=== PATIENT | female | born 1975 | race Caucasian/White ===

== ENCOUNTER 2023-05-13 14:18 | Emergency (ER) | payer OTHER ==
[~2023-05-13] VITALS: Ht 182.9 cm; Wt 124.7 kg
[~2023-05-13 14:18] MED LIST: CEPH500 PO; ERYT500 PO; GUAI600ER PO; HYDACE5 PO; LEVSOD50 PO; METR500 PO; SULTRIDS PO; TRAACE PO; TRAM50 PO
[2023-05-13 14:42] VITALS: BP 137/84
[2023-05-13] MEDS ORDERED: Bactrim Ds Tab1 EACH PO ×2 (14:43→15:45)
[2023-05-13] MEDS ORDERED: Ambien10 MG PO ×2 (14:45→15:45)
== END 2023-05-13 15:52 | disposition home or self-care (01) ==
LOC: ER 14:18
DX: L03.011 Cellulitis of right finger (principal); Z88.0 Allergy status to penicillin; Z88.1 Allergy status to other antibiotic agents; Z88.8 Allergy status to other drugs, medicaments and biological substances; Z79.890 Hormone replacement therapy; Z79.899 Other long term (current) drug therapy
CPT/HCPCS: 10060; 99283-25

== ENCOUNTER → 2023-11-25 | Outpatient (CLI) | payer MEDICARE, OTHER ==
[~2023-11-25] MED LIST changes: +Ambien10 MG PO; +Bactrim Ds Tab1 EACH PO
== END | disposition home or self-care (01) ==
LOC: LAB 18:19 → LAB SHORT 18:19
DX: N39.0 Urinary tract infection, site not specified (principal)
CPT/HCPCS: 87077; 87086; 87186

== ENCOUNTER 2024-01-12 14:08 | Inpatient (IN) | payer MEDICARE, OTHER ==
[~2024-01-12] VITALS: Ht 180.3 cm; Wt 126.7 kg
[2024-01-12 14:46] LABS: BASOPHILS ABSOLUTE AUTO 0.08 K/mm3 (0.00-0.23); BASOPHILS PERCENT AUTO 1 % (0-2); EOSINOPHILS ABSOLUTE AUTO 0.54 K/mm3 (0.00-0.68); EOSINOPHILS PERCENT AUTO 4 % (0-6); Hematocrit 35.6 % (33.0-51.0); Hemoglobin 11.6 g/dL (11.5-16.0); IMMATURE GRAN ABSOLUTE AUTO 0.08 K/mm3 (0.00-0.10); IMMATURE GRAN PERCENT AUTO 1 % (0-1); LYMPHOCYTES ABSOLUTE AUTO 2.77 K/mm3 (0.84-5.20); LYMPHOCYTES PERCENT AUTO 22 % (21-46); MONOCYTES ABSOLUTE AUTO 0.94 K/mm3 (0.16-1.47); MONOCYTES PERCENT AUTO 8 % (4-13); Mean Corpuscular HGB 28.2 pg (26.0-34.0); Mean Corpuscular HGB Conc 32.6 g/dL (31.5-36.5); Mean Corpuscular Volume 86 fL (80-100); Mean Platelet Volume 11.3 fL (9.1-12.4); NEUTROPHILS ABSOLUTE AUTO 8.11 K/mm3 (1.96-9.15); NEUTROPHILS PERCENT AUTO 65 % (41-73); Platelet Count 323 K/mm3 (150-400); RDW Coefficient Variation 14.5 % (11.7-14.2); RDW Standard Deviation 46.1 fL (35.1-46.3); Red Blood Cell Count 4.12 M/mm3 (3.80-5.20); White Blood Cell Count 12.52 K/mm3 (4.00-11.30)
[2024-01-12 15:10] LABS: Albumin, Blood 3.4 g/dL (3.4-5.0); Bilirubin, Total 0.5 mg/dL (0.1-1.0); Calcium, Blood 7.9 mg/dL (8.5-10.1); Creatinine, Blood 0.67 mg/dL (0.40-1.00); Globulin, Blood 3.5 g/dL (2.2-4.0); Potassium, Blood 3.9 mmol/L (3.5-5.5); Total Protein, Blood 6.9 g/dL (6.4-8.2)
[2024-01-12] MEDS ORDERED: Azithromycin 250 MG Tab PO ONE (15:30)
[2024-01-12] MEDS ORDERED: CefTRIAXone Sodium 1,000 MG in NS 100 ML IV ONE ×2 (15:30→17:15)
[2024-01-12] MEDS ORDERED: Ketorolac Tromethamine 15mg Vial IV ONE (15:35)
[2024-01-12] MEDS ORDERED: Acetamin/Butalbital/Caffeine Tab PO ONE (16:00)
[2024-01-12] MEDS ORDERED: BASAGLAR K100 UNIT/3 SC (16:04)
[2024-01-12] MEDS ORDERED: NOVOLOG MI100 UNIT/2 SC (16:04)
[2024-01-12] MEDS ORDERED: PARO30 PO (16:04)
[2024-01-12] MEDS ORDERED: ALBU90OI INH (16:04)
[2024-01-12] MEDS ORDERED: BUTALB-ACETAMI1 EAC5 PO (16:05)
[2024-01-12] MEDS ORDERED: ROPINIROLE HCL2 M1 PO (16:06)
[2024-01-12] MEDS ORDERED: REXULTI2 MG PO (16:06)
[2024-01-12] MEDS ORDERED: AMPDEX30CR PO (16:07)
[2024-01-12] MEDS ORDERED: LISI5 PO (16:07)
[2024-01-12] MEDS ORDERED: ATOR80 PO (16:07)
[2024-01-12] MEDS ORDERED: GABA300 PO (16:07)
[2024-01-12] MEDS ORDERED: Zolpidem Tartrate 10 MG Tab PO PRN (17:15)
[2024-01-12] MEDS ORDERED: OxyCODONE HCL 5 MG TAB PO PRN (17:20)
[2024-01-12] MEDS ORDERED: Ondansetron 4 MG TAB PO PRN (17:20)
[2024-01-12] MEDS ORDERED: Ondansetron HCl 2 MG / ML 2ML Vial IV PRN (17:20)
[2024-01-12] MEDS ORDERED: Albuterol 2.5 MG/3 ML VIAL INH PRN (17:20)
[2024-01-12] MEDS ORDERED: Acetaminophen 325 MG TABLET PO PRN (17:20)
[2024-01-12] MEDS ORDERED: Acetamin/Butalbital/Caffeine Tab PO PRN (17:25)
[2024-01-12] MEDS ORDERED: Insulin Human Lispro 100 Units/ML 3ML Syringe SC SCH ×2 (17:30→21:00)
[2024-01-12 18:26] VITALS: BP 137/85
[2024-01-12] MEDS ORDERED: CLON1 PO (18:38)
[2024-01-12 19:19] VITALS: BP 145/75
[2024-01-12] MEDS ORDERED: ClonazePAM 0.5 MG Tab PO ONE (20:35)
--- NOTE | 2024-01-12 20:36 | NUR ---
PER BAKARI FORBES. OK TO ORDER 0.5 MG KLONOPIN NOW. PT STATES SHE USUALLY TAKES 1 MG PRN FOR ANXIETY. WILL FOLLOW UP WITH DAY SHIFT, TO CONFIRM CORRECT DOSE. PAST CLAIM INFORMATION SHOWS 0.5 MG PRN DAILY FOR SEVERE ANXIETY
[2024-01-12] MEDS ORDERED: Lactobacil 2-S.Thermo-Bifido 1 1 Cap PO SCH (21:00)
[2024-01-12] MEDS ORDERED: rOPINIRole HCl 2 MG Tab PO SCH (21:00)
[2024-01-12] MEDS ORDERED: Atorvastatin 40 MG Tab PO SCH (21:00)
[2024-01-12] MEDS ORDERED: Gabapentin 300 MG Cap PO SCH (21:00)
[2024-01-13 02:41] VITALS: BP 104/68
--- NOTE | 2024-01-13 05:18 | NUR ---
NO ACUTE CHANGES THIS SHIFT, PT DID ASK FOR PRN PAIN MEDICATIONS FOR MIGRAINE AND PRN BREATHING TREATMENT X1. ABLE TO MAKE NEEDS KNOWN. DAY SHIFT TO VERIFY PRECRIPTION FOR KLONOPIN FOR ANXIETY. ONE TIME ORDERED LAST NIGHT, PT DID ASK FOR AGAIN AROUND 4AM. TREATED PAIN PER EMAR. INDEPENDENT IN THE ROOM, ABLE TO MAKE NEEDS KNOWN.
[2024-01-13 05:23] LABS: BASOPHILS ABSOLUTE AUTO 0.08 K/mm3 (0.00-0.23); BASOPHILS PERCENT AUTO 1 % (0-2); EOSINOPHILS ABSOLUTE AUTO 0.72 K/mm3 (0.00-0.68); EOSINOPHILS PERCENT AUTO 7 % (0-6); Hematocrit 35.8 % (33.0-51.0); Hemoglobin 11.3 g/dL (11.5-16.0); IMMATURE GRAN ABSOLUTE AUTO 0.04 K/mm3 (0.00-0.10); IMMATURE GRAN PERCENT AUTO 0 % (0-1); LYMPHOCYTES ABSOLUTE AUTO 3.66 K/mm3 (0.84-5.20); LYMPHOCYTES PERCENT AUTO 34 % (21-46); MONOCYTES ABSOLUTE AUTO 0.98 K/mm3 (0.16-1.47); MONOCYTES PERCENT AUTO 9 % (4-13); Mean Corpuscular HGB 27.6 pg (26.0-34.0); Mean Corpuscular HGB Conc 31.6 g/dL (31.5-36.5); Mean Corpuscular Volume 88 fL (80-100); Mean Platelet Volume 11.8 fL (9.1-12.4); NEUTROPHILS ABSOLUTE AUTO 5.46 K/mm3 (1.96-9.15); NEUTROPHILS PERCENT AUTO 50 % (41-73); Platelet Count 323 K/mm3 (150-400); RDW Coefficient Variation 14.6 % (11.7-14.2); RDW Standard Deviation 47.2 fL (35.1-46.3); Red Blood Cell Count 4.09 M/mm3 (3.80-5.20); White Blood Cell Count 10.94 K/mm3 (4.00-11.30)
[2024-01-13 05:56] LABS: Albumin, Blood 3.1 g/dL (3.4-5.0); Albumin/Globulin Ratio 0.9 (0.8-1.8); Bilirubin, Total 0.3 mg/dL (0.1-1.0); Bun/Creatinine Ratio 14.3 (12.0-20.0); Calcium, Blood 8.3 mg/dL (8.5-10.1); Creatinine, Blood 0.77 mg/dL (0.40-1.00); Globulin, Blood 3.6 g/dL (2.2-4.0); Potassium, Blood 3.9 mmol/L (3.5-5.5); Total Protein, Blood 6.7 g/dL (6.4-8.2)
[2024-01-13] MEDS ORDERED: Levothyroxine Sodium 0.05 MG Tab PO SCH (06:00)
[2024-01-13 07:19] VITALS: BP 144/85
[2024-01-13] MEDS ORDERED: PARoxetine HCl 20 MG Tab PO SCH (09:00)
[2024-01-13] MEDS ORDERED: Lisinopril 5 MG Tab PO SCH (09:00)
[2024-01-13] MEDS ORDERED: Amphet Asp/Amphet/D-Amphet 15 MG CapCR PO SCH (09:00)
[2024-01-13] MEDS ORDERED: Enoxaparin 40 MG/0.4 ML SYR SC SCH (09:00)
[2024-01-13] MEDS ORDERED: Insulin Glargine-Yfgn 100 Unit/mL 3 ML SYR SC SCH (09:00)
[2024-01-13] MEDS ORDERED: ClonazePAM 0.5 MG Tab PO PRN (13:55)
--- NOTE | 2024-01-13 14:37 | NUR ---
DNR BAND PLACED TO WRIST. VERIFIED BY SHIRA RAMOS, RN
[2024-01-13 15:27] VITALS: BP 153/87
[2024-01-13] MEDS ORDERED: TRADJENTA5 MG PO (16:44)
[2024-01-13] MEDS ORDERED: NS 250 ML IV PRN (17:40)
--- NOTE | 2024-01-13 17:46 | NUR ---
SHIFT SUMMARY PT CHANGED TO DNR STATUS AFTER SPEAKING WITH DR. WILLINGHAM ABOUT HER WISHES. [facility] ALSO FILLED OUT AND COPY PLACED ON CHART. PT REQUESTING KLONOPIN FOR HER ANXIETY. PT DR. MART CALLED & REPORTED THAT THIS MED WAS DCED IN THE CLINIC. DR. WILLINGHAM RELAYED THIS INFORMATION. GAVE ORDER TO GIVE KLONOPIN 0.5 BID NEEDED. ONCE DOSE GIVEN THIS SHIFT. PT REQUESTING PAIN MEDS OFTEN FOR HEADACHE & NECK PAIN. PT WEANED OFF O2 TODAY WHILE AT REST. UP TO BATHROOM INDEPENDENTLY TODAY. NO OTHER ACUTE CHANGES IN ASSESSMENT AT THIS TIME. VS REVIEWED. CALL LIGHT IN REACH. DENIES OTHER NEEDS AT THIS TIME.
[2024-01-13] MEDS ORDERED: CefTRIAXone Sodium 2,000 MG in NS 100 ML IV SCH (18:00)
[2024-01-13] MEDS ORDERED: Azithromycin 500 MG in NS 250 ML IV SCH (18:00)
[2024-01-13] MEDS ORDERED: ClonazePAM 0.5 MG Tab PO SCH (21:00)
[2024-01-13 21:04] VITALS: BP 138/71
[2024-01-14 02:16] VITALS: BP 131/83
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
[2024-01-14 07:46] VITALS: BP 133/88
[2024-01-14] MEDS ORDERED: CEFP200 PO (14:39)
--- NOTE | 2024-01-14 14:57 | NUR ---
PATIENT D/C'D TO HOME WITH FAMILY. DC INSTRUCTIONS AND EDUCATION DISCUSSED WITH PATIENT AND COPY PROVIDED. HOME O2 EVAL COMPLETED AND PATIENT DOES NOT QUALIFY. PATIENT DENIES ANY FURTHER QUESTIONS OR CONCERNS.
== END 2024-01-14 15:05 | disposition home or self-care (01) | DRG 193 ==
LOC: ER 14:08 → MEDS 17:52
PROVIDERS: Physician Assistant; ADMIT Internal Medicine
DX: J18.9 Pneumonia, unspecified organism (principal); J96.01 Acute respiratory failure with hypoxia; E87.1 Hypo-osmolality and hyponatremia; I10 Essential (primary) hypertension; E03.9 Hypothyroidism, unspecified; E78.5 Hyperlipidemia, unspecified; F32.A Depression, unspecified; E11.65 Type 2 diabetes mellitus with hyperglycemia; E66.9 Obesity, unspecified; G43.909 Migraine, unspecified, not intractable, without status migrainosus; Z98.890 Other specified postprocedural states; Z88.0 Allergy status to penicillin; Z88.1 Allergy status to other antibiotic agents; Z88.8 Allergy status to other drugs, medicaments and biological substances; Z79.899 Other long term (current) drug therapy; Z79.890 Hormone replacement therapy; Z68.34 Body mass index [BMI] 34.0-34.9, adult; Z79.4 Long term (current) use of insulin
CPT/HCPCS: 36415; 71046; 80053; 82947; 85025; 93005; 93010; 94640; 94664; 94761; 94762; 96365; 96375; 99285-25; A9270; J0456; J0696; J1650; J1815; J1885; J7050

== ENCOUNTER 2024-02-07 14:21 | Inpatient (IN) | payer MEDICARE, OTHER ==
[~2024-02-07] VITALS: Ht 180.3 cm; Wt 127.1 kg
[~2024-02-07 14:21] MED LIST changes: +ALBU90OI INH; +AMPDEX30CR PO; +ATOR80 PO; +BASAGLAR K100 UNIT/3 SC; +BUTALB-ACETAMI1 EAC5 PO; +CEFP200 PO; +CLON1 PO; +GABA300 PO; +LISI5 PO; +NOVOLOG MI100 UNIT/2 SC; +PARO30 PO; +REXULTI2 MG PO; +ROPINIROLE HCL2 M1 PO; +TRADJENTA5 MG PO
[2024-02-07 15:04] LABS: BASOPHILS ABSOLUTE AUTO 0.07 K/mm3 (0.00-0.23); BASOPHILS PERCENT AUTO 1 % (0-2); EOSINOPHILS ABSOLUTE AUTO 0.87 K/mm3 (0.00-0.68); EOSINOPHILS PERCENT AUTO 9 % (0-6); Hematocrit 38.1 % (33.0-51.0); Hemoglobin 12.4 g/dL (11.5-16.0); IMMATURE GRAN ABSOLUTE AUTO 0.05 K/mm3 (0.00-0.10); IMMATURE GRAN PERCENT AUTO 1 % (0-1); LYMPHOCYTES ABSOLUTE AUTO 2.77 K/mm3 (0.84-5.20); LYMPHOCYTES PERCENT AUTO 29 % (21-46); MONOCYTES ABSOLUTE AUTO 0.73 K/mm3 (0.16-1.47); MONOCYTES PERCENT AUTO 8 % (4-13); Mean Corpuscular HGB 27.9 pg (26.0-34.0); Mean Corpuscular HGB Conc 32.5 g/dL (31.5-36.5); Mean Corpuscular Volume 86 fL (80-100); NEUTROPHILS PERCENT AUTO 54 % (41-73); Platelet Count 322 K/mm3 (150-400); RDW Coefficient Variation 14.1 % (11.7-14.2); RDW Standard Deviation 43.9 fL (35.1-46.3); Red Blood Cell Count 4.45 M/mm3 (3.80-5.20); White Blood Cell Count 9.69 K/mm3 (4.00-11.30)
[2024-02-07 15:26] LABS: Albumin, Blood 3.6 g/dL (3.4-5.0); Albumin/Globulin Ratio 1.1 (0.8-1.8); Bilirubin, Total 0.4 mg/dL (0.1-1.0); Bun/Creatinine Ratio 17.2 (12.0-20.0); Calcium, Blood 8.6 mg/dL (8.5-10.1); Creatinine, Blood 0.7 mg/dL (0.40-1.00); Globulin, Blood 3.4 g/dL (2.2-4.0); Potassium, Blood 3.6 mmol/L (3.5-5.5)
[2024-02-07] MEDS ORDERED: Albuterol 2.5 MG/3 ML VIAL INH SCH (16:35)
[2024-02-07] MEDS ORDERED: Aspirin/Caffeine/Butalbital 1 CAP PO ONE (17:10)
[2024-02-07 18:18] LABS: Base Excess Venous 7 mmol/L; Bicarbonate Venous 29.1 mmol/L (24.0-30.0); PCO2 Venous 57.4 mmHg (38-42); pH Blood Venous 7.36 (7.34-7.37)
[2024-02-07 20:05] LABS: Influenza A, PCR NEGATIVE (NEGATIVE); Influenza B, PCR NEGATIVE (NEGATIVE); Resp Syncytial Virus, PCR NEGATIVE (NEGATIVE); SARS-Cov-2 (COVID-19) PCR, MMC NEGATIVE (NEGATIVE)
[2024-02-07] MEDS ORDERED: Ipratropium/Albuterol SulF 2.5-0.5MG/3 ML Amp INH PRN (20:10)
[2024-02-07] MEDS ORDERED: Ondansetron HCl 2 MG / ML 2ML Vial IV PRN (20:10)
[2024-02-07] MEDS ORDERED: FentaNYL Citrate 50 MCG/ML 2 ML Injection IV PRN (21:00)
[2024-02-07] MEDS ORDERED: FentaNYL Citrate 50 MCG/ML 2 ML Injection IV ONE (21:00)
[2024-02-07] MEDS ORDERED: Enoxaparin 40 MG/0.4 ML SYR SC SCH (21:00)
[2024-02-07] MEDS ORDERED: Insulin Glargine-Yfgn 100 Unit/mL 3 ML SYR SC SCH (21:00)
[2024-02-07] MEDS ORDERED: MethylPREDNISolone Sod Succ 125 MG Vial IV SCH (21:00)
[2024-02-07 22:39] VITALS: BP 136/74
[2024-02-07] MEDS ORDERED: Acetamin/Butalbital/Caffeine Tab PO PRN ×2 (23:10→23:20)
[2024-02-07] MEDS ORDERED: ClonazePAM 1 MG Tab PO PRN (23:15)
[2024-02-07] MEDS ORDERED: HYDROcodone 5-APAP 325 TAB PO PRN (23:20)
[2024-02-07] MEDS ORDERED: Albuterol HFA200 ACT/6.7 GM INH INH SCH (23:30)
[2024-02-07] MEDS ORDERED: Albuterol HFA200 ACT/6.7 GM INH INH PRN (23:40)
--- NOTE | 2024-02-08 01:19 | NUR ---
ADMIT NOTE PT ARRIVED TO FLOOR VIA GURNEY. PT ORIENTED TO UNIT. PERSONAL POSSESSIONS WITH PT. CALL BUTTON WITHIN REACH. TELEMETRY IN PLACE: NSR @ 85 BPM
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
[2024-02-08] MEDS ORDERED: Zolpidem Tartrate 10 MG Tab PO ONE (02:05)
[2024-02-08 04:49] VITALS: BP 141/84
[2024-02-08 05:23] LABS: BASOPHILS ABSOLUTE AUTO 0.08 K/mm3 (0.00-0.23); BASOPHILS PERCENT AUTO 1 % (0-2); EOSINOPHILS ABSOLUTE AUTO 0.16 K/mm3 (0.00-0.68); EOSINOPHILS PERCENT AUTO 2 % (0-6); Hematocrit 37.7 % (33.0-51.0); Hemoglobin 12.2 g/dL (11.5-16.0); IMMATURE GRAN ABSOLUTE AUTO 0.04 K/mm3 (0.00-0.10); IMMATURE GRAN PERCENT AUTO 0 % (0-1); LYMPHOCYTES ABSOLUTE AUTO 1.07 K/mm3 (0.84-5.20); LYMPHOCYTES PERCENT AUTO 10 % (21-46); MONOCYTES ABSOLUTE AUTO 0.23 K/mm3 (0.16-1.47); MONOCYTES PERCENT AUTO 2 % (4-13); Mean Corpuscular HGB 27.6 pg (26.0-34.0); Mean Corpuscular HGB Conc 32.4 g/dL (31.5-36.5); Mean Corpuscular Volume 85 fL (80-100); Mean Platelet Volume 11.6 fL (9.1-12.4); NEUTROPHILS ABSOLUTE AUTO 9.27 K/mm3 (1.96-9.15); NEUTROPHILS PERCENT AUTO 85 % (41-73); Platelet Count 314 K/mm3 (150-400); RDW Coefficient Variation 14.3 % (11.7-14.2); RDW Standard Deviation 43.8 fL (35.1-46.3); Red Blood Cell Count 4.42 M/mm3 (3.80-5.20); White Blood Cell Count 10.85 K/mm3 (4.00-11.30)
[2024-02-08 05:40] LABS: Albumin, Blood 3.5 g/dL (3.4-5.0); Bilirubin, Total 0.3 mg/dL (0.1-1.0); Bun/Creatinine Ratio 19.3 (12.0-20.0); Calcium, Blood 8.8 mg/dL (8.5-10.1); Creatinine, Blood 0.83 mg/dL (0.40-1.00); Globulin, Blood 3.6 g/dL (2.2-4.0); Potassium, Blood 4.4 mmol/L (3.5-5.5); Total Protein, Blood 7.1 g/dL (6.4-8.2)
[2024-02-08] MEDS ORDERED: Levothyroxine Sodium 0.05 MG Tab PO SCH (06:00)
--- NOTE | 2024-02-08 06:03 | NUR ---
SHIFT SUMMARY ADMITTED THIS SHIFT FOR REACTIVE AIRWAY DISEASE. DNR CODE. PLAN IS FOR STEROIDS AND RT TX'S. TELEMETRY: NSR @ 85 BPM. ACHS CBG'S - LOW SS. DIM IN ALL LUNG COTO WITH MILD EXPIRATORY WHEEZES. RECENT ADMIT 2 WEEKS AGO FOR PNEUMONIA. INDEPENDENT - BRP. REGULAR DIET. A&O X4. PAIN MEDICATION GIVEN THIS SHIFT. INSOMNIA MEDICATION GIVEN THIS SHIFT.
[2024-02-08] MEDS ORDERED: Insulin Human Lispro 100 Units/ML 3ML Syringe SC SCH ×4 (07:30→17:30)
[2024-02-08 07:47] VITALS: BP 136/73
[2024-02-08] MEDS ORDERED: Lisinopril 5 MG Tab PO SCH (09:00)
[2024-02-08] MEDS ORDERED: PARoxetine HCl 20 MG Tab PO SCH (09:00)
[2024-02-08] MEDS ORDERED: Gabapentin 300 MG Cap PO SCH (09:00)
[2024-02-08] MEDS ORDERED: Amphet Asp/Amphet/D-Amphet 15 MG CapCR PO SCH (09:00)
[2024-02-08] MEDS ORDERED: Insulin Glargine-Yfgn 100 Unit/mL 3 ML SYR SC SCH (09:00)
[2024-02-08] MEDS ORDERED: TiZANidine HCl 4 MG Tab PO PRN (09:55)
[2024-02-08] MEDS ORDERED: ClonazePAM 0.5 MG Tab PO SCH (10:00)
--- NOTE | 2024-02-08 11:45 | NUR ---
NOTE PT REPORTED HER PAIN WAS NOT BEING MANAGED BY NORCO AND ZANAFLEX ADEQUATELY. PT REPORTS A PAIN RATING OF AN 8 ON A PAIN SCALE. PT REPORTS RECIEVING FENTYNAL LAST NIGHT AND IT HELPED RELEIVE PAIN. SUDHA GUARDADO, AND TIERNEY VERIFIED DOSE AND WASTE. PT BREATHING IS EVEN AND UNLABORED. EDUCATED PT ABOUT SIDE EFFECTS OF FENTYNAL. PT REPORTED THAT SHE WILL CALL IF HER WORK OF BREATHING INCREASES.
[2024-02-08] MEDS ORDERED: Ipratropium/Albuterol SulF 2.5-0.5MG/3 ML Amp INH SCH (12:20)
[2024-02-08] MEDS ORDERED: Albuterol 2.5 MG/3 ML VIAL INH PRN (12:20)
[2024-02-08 16:08] VITALS: BP 122/66
[2024-02-08] MEDS ORDERED: Azithromycin 500 MG in NS 250 ML IV SCH (16:08)
[2024-02-08] MEDS ORDERED: NS 250 ML IV PRN (16:40)
[2024-02-08] MEDS ORDERED: Insulin Glargine-Yfgn 100 Unit/mL 3 ML SYR SC ONE (17:00)
--- NOTE | 2024-02-08 17:51 | NUR ---
SHIFT SUMMARY PT A&OX4. PT ADMITTED DUE TO REACTIVE AIRWAY DISEASE. PT HAS REPORTED PAIN THROUGH SHIFT IN HER BACK, HEAD, AND NECK. SHE REPORTS THE PAIN BEING CHRONIC. PT REQUESTS PAIN MED SOON IT DUE, SHE RECIEVED 25 MCG OF IV FENT., NORCO, FIORICET, AND ZANAFLEX. REPORTS RELIEF. PT IS ON 3L OF O2 VIA N/C. REPORTS NO O2 NEEDS AT HOME. SPO2 IS 90%. PT WAS SEEN BY RT TODAY. PT HAS HX OF DIABETES, HER BLOOD GLUCOSE HAS BEEN ELEVATED THROUGH SHIFT, DISCUSSED WITH DOCTOR ABOUT INSULIN ADJUSTMENT TO MEET THE NEEDS OF WHAT SHE RECIEVES AT HOME. PT NOW ON A HIGH CORRECTION SCALE. PT ABLE TO AMBULATE TO TOILET. PT ON TELE. PT REPORTS NO CHEST DISCOMFORT. PT DOES NOT HAVE A COUGH. PT MAKES HER NEEDS KNOWN AND CALL LIGHT IN REACH.
[2024-02-08] MEDS ORDERED: Ibuprofen 600 MG Tab PO PRN (19:50)
[2024-02-08] MEDS ORDERED: SUMAtriptan succinate 50 MG Tab PO PRN (19:50)
[2024-02-08 20:36] VITALS: BP 95/69
[2024-02-08] MEDS ORDERED: GuaiFENesin 600 MG TabCR PO SCH (21:00)
[2024-02-08] MEDS ORDERED: MethylPREDNISolone Sod Succ 125 MG Vial IV SCH (21:00)
[2024-02-08] MEDS ORDERED: Lactobacil 2-S.Thermo-Bifido 1 1 Cap PO SCH (21:00)
[2024-02-08] MEDS ORDERED: rOPINIRole HCl 2 MG Tab PO SCH (21:00)
[2024-02-08] MEDS ORDERED: Zolpidem Tartrate 10 MG Tab PO SCH ×2 (21:00)
[2024-02-09 04:42] VITALS: BP 106/59
[2024-02-09 05:00] LABS: BASOPHILS ABSOLUTE AUTO 0.03 K/mm3 (0.00-0.23); BASOPHILS PERCENT AUTO 0 % (0-2); EOSINOPHILS ABSOLUTE AUTO 0.01 K/mm3 (0.00-0.68); EOSINOPHILS PERCENT AUTO 0 % (0-6); Hematocrit 34.5 % (33.0-51.0); Hemoglobin 11.3 g/dL (11.5-16.0); IMMATURE GRAN ABSOLUTE AUTO 0.05 K/mm3 (0.00-0.10); IMMATURE GRAN PERCENT AUTO 0 % (0-1); LYMPHOCYTES ABSOLUTE AUTO 1.82 K/mm3 (0.84-5.20); LYMPHOCYTES PERCENT AUTO 13 % (21-46); MONOCYTES ABSOLUTE AUTO 0.53 K/mm3 (0.16-1.47); MONOCYTES PERCENT AUTO 4 % (4-13); Mean Corpuscular HGB 27.9 pg (26.0-34.0); Mean Corpuscular HGB Conc 32.8 g/dL (31.5-36.5); Mean Corpuscular Volume 85 fL (80-100); Mean Platelet Volume 11.8 fL (9.1-12.4); NEUTROPHILS ABSOLUTE AUTO 11.48 K/mm3 (1.96-9.15); NEUTROPHILS PERCENT AUTO 82 % (41-73); Platelet Count 332 K/mm3 (150-400); RDW Coefficient Variation 14.2 % (11.7-14.2); RDW Standard Deviation 43.7 fL (35.1-46.3); Red Blood Cell Count 4.05 M/mm3 (3.80-5.20); White Blood Cell Count 13.92 K/mm3 (4.00-11.30)
[2024-02-09 05:23] LABS: Magnesium, Blood 2.1 mg/dL (1.6-2.4)
[2024-02-09 05:24] LABS: Albumin, Blood 3.3 g/dL (3.4-5.0); Bilirubin, Total 0.3 mg/dL (0.1-1.0); Bun/Creatinine Ratio 32.3 (12.0-20.0); Calcium, Blood 8.5 mg/dL (8.5-10.1); Creatinine, Blood 0.71 mg/dL (0.40-1.00); Globulin, Blood 3.3 g/dL (2.2-4.0); Phosphorus, Blood 3.2 mg/dL (2.5-4.9); Potassium, Blood 4.1 mmol/L (3.5-5.5); Total Protein, Blood 6.6 g/dL (6.4-8.2)
--- NOTE | 2024-02-09 05:33 | NUR ---
Patient alert and oriented x4, VSS, tolerating oxygen via nasal cannula, ambulating independently in room, using restroom for needs. Patient noncompliant with diet, voicing understanding but disregard for ordered diet with regards to blood sugars. Patient observed to be using electronic vape in room, education provided r/t facility smoking policy, patient surrendered vape which was placed in locking medication drawer outside of room. Oxygen weaned from 2.5L to 1L, tolerating well at this time.
[2024-02-09 07:43] VITALS: BP 105/60
--- NOTE | 2024-02-09 08:36 | NUR ---
Provider notified: Provider was notified by overnight associate CHADD Olivia about patient using vape while on oxygen. No new orders. Patient gave vape to staff to lock in drawer.
[2024-02-09] MEDS ORDERED: Insulin Glargine-Yfgn 100 Unit/mL 3 ML SYR SC SCH (09:00)
[2024-02-09] MEDS ORDERED: HYDROcodone 5-APAP 325 TAB PO PRN (10:30)
[2024-02-09] MEDS ORDERED: HYDROCODONE-AC1 EA19 PO (14:06)
[2024-02-09] MEDS ORDERED: REXULTI2 MG PO (14:06)
[2024-02-09] MEDS ORDERED: PEPCID40 MG PO (14:07)
[2024-02-09] MEDS ORDERED: FENO54 PO (14:07)
[2024-02-09] MEDS ORDERED: KLONOPIN0.5 M9 PO (14:08)
[2024-02-09 15:49] VITALS: BP 152/96
--- NOTE | 2024-02-09 16:22 | NUR ---
SHIFT SUMMARY; PATIENT REMAINS ON 1 LITER OXYGEN VIA NASAL CANNULA. SHE IS HYPERTENSIVE AT 152/76. SHE DENIES ANY CP OR SHORTNESS OF BREATH. PATIENT ASKS FOR PAIN MEDICATIONS REPEATEDLY THROUGHOUT SHIFT. MD GARCIAS'D HER IV FENTANYL AND DID CHANGE HER NORCO TO Q8 HOURS IN ANTICIPATION OF HER GOING HOME TOMORROW. SHE IS ON TELE WITH SINUS RHYTHM AT 84 CURRENTLY. SHE IS INDEPENDANT IN THE ROOM. HER CHEM BG'S HAVE BEEN ELEVATED THROUGHOUT THE DAY WITH EVENING AT 325. SHE IS AO X 4 DURING DAY. HER LUNGS ARE DIMINISHED IN BASES. WILL REMAIN AVAILABLE FOR THIS PATIENT FOR ANY WANTS OR NEEDS THAT COME UP PRIOR TO REPORT AND HAND OFF TO NOC SHIFT RN.
[2024-02-09 19:33] VITALS: BP 136/74
[2024-02-10 03:07] VITALS: BP 109/74
--- NOTE | 2024-02-10 05:19 | NUR ---
SHIFT SUMMARY 48 YR F ADMITED ON 02/07/24. DNR. NO ACUTE CHANGES THIS SHIFT. PT CONTINUES TO ASK FOR PAIN MEDS FREQUENTLY AND EXPRESSED THAT SHE IS NOT HAPPY W/ MED CHANGES DONE YESTERDAY. SHE APPEARS TO HAVE RESTED COMFORTABLY THROUGHOUT THIS SHIFT. NO ADVERSE TELE EVENTS REPORTED HIS SHIFT. BED IN LOW POSITION AND CALL LIGHT IN REACH.
[2024-02-10 05:28] LABS: BASOPHILS ABSOLUTE AUTO 0.06 K/mm3 (0.00-0.23); BASOPHILS PERCENT AUTO 0 % (0-2); EOSINOPHILS ABSOLUTE AUTO 0.24 K/mm3 (0.00-0.68); EOSINOPHILS PERCENT AUTO 2 % (0-6); Hematocrit 38.6 % (33.0-51.0); Hemoglobin 12.3 g/dL (11.5-16.0); IMMATURE GRAN ABSOLUTE AUTO 0.05 K/mm3 (0.00-0.10); IMMATURE GRAN PERCENT AUTO 0 % (0-1); LYMPHOCYTES ABSOLUTE AUTO 5.25 K/mm3 (0.84-5.20); LYMPHOCYTES PERCENT AUTO 35 % (21-46); MONOCYTES ABSOLUTE AUTO 1.08 K/mm3 (0.16-1.47); MONOCYTES PERCENT AUTO 7 % (4-13); Mean Corpuscular HGB 27.4 pg (26.0-34.0); Mean Corpuscular HGB Conc 31.9 g/dL (31.5-36.5); Mean Corpuscular Volume 86 fL (80-100); Mean Platelet Volume 11.7 fL (9.1-12.4); NEUTROPHILS ABSOLUTE AUTO 8.38 K/mm3 (1.96-9.15); NEUTROPHILS PERCENT AUTO 56 % (41-73); Platelet Count 369 K/mm3 (150-400); RDW Coefficient Variation 14.5 % (11.7-14.2); Red Blood Cell Count 4.49 M/mm3 (3.80-5.20); White Blood Cell Count 15.06 K/mm3 (4.00-11.30)
[2024-02-10 05:58] LABS: Albumin, Blood 3.6 g/dL (3.4-5.0); Albumin/Globulin Ratio 1.1 (0.8-1.8); Bilirubin, Total 0.3 mg/dL (0.1-1.0); Bun/Creatinine Ratio 27.9 (12.0-20.0); Calcium, Blood 8.4 mg/dL (8.5-10.1); Creatinine, Blood 0.79 mg/dL (0.40-1.00); Globulin, Blood 3.4 g/dL (2.2-4.0); Potassium, Blood 3.4 mmol/L (3.5-5.5)
[2024-02-10 07:15] VITALS: BP 132/79
[2024-02-10] MEDS ORDERED: Azithromycin 250 MG Tab PO SCH (08:00)
[2024-02-10] MEDS ORDERED: PredniSONE 20 MG Tab PO SCH (09:00)
[2024-02-10] MEDS ORDERED: AZIT500 PO (12:51)
[2024-02-10] MEDS ORDERED: GUAI600T33 PO (12:51)
[2024-02-10] MEDS ORDERED: IBUP600 PO (12:52)
[2024-02-10] MEDS ORDERED: PRED20 PO (12:53)
[2024-02-10] MEDS ORDERED: IPRAT-ALBUT 0.5-3 ML INH (12:53)
== END 2024-02-10 13:07 | disposition home or self-care (01) | DRG 189 ==
LOC: ER 14:21 → MEDS 20:04 → ENPENDDIS 02-10 12:46 → MEDS 02-10 13:07
PROVIDERS: Emergency Medicine; Family Medicine; Hospitalist; Physician Assistant; Student in an Organized Health Care Education/Training Program; ADMIT Internal Medicine
DX: J96.01 Acute respiratory failure with hypoxia (principal); J45.901 Unspecified asthma with (acute) exacerbation; G43.909 Migraine, unspecified, not intractable, without status migrainosus; J96.02 Acute respiratory failure with hypercapnia; M54.2 Cervicalgia; F32.9 Major depressive disorder, single episode, unspecified; E03.9 Hypothyroidism, unspecified; E78.5 Hyperlipidemia, unspecified; E11.9 Type 2 diabetes mellitus without complications; R94.31 Abnormal electrocardiogram [ECG] [EKG]; Z68.34 Body mass index [BMI] 34.0-34.9, adult; G47.33 Obstructive sleep apnea (adult) (pediatric); Z98.890 Other specified postprocedural states; Z88.0 Allergy status to penicillin; Z88.1 Allergy status to other antibiotic agents; Z88.8 Allergy status to other drugs, medicaments and biological substances; Z79.4 Long term (current) use of insulin; Z79.890 Hormone replacement therapy; Z79.899 Other long term (current) drug therapy
CPT/HCPCS: 0241U; 36415; 71046; 71260; 80053; 82803; 82947; 83735; 83880; 84100; 84484; 85025; 87070; 87205; 93005; 93010; 93306; 94640; 94644; 94664; 94760; 94761; 99285-25; A9270; J0456; J1650; J1815; J2919; J3010; J7050; J7512; Q9967